=== PATIENT | female | born 1990 | race Caucasian/White ===

== ENCOUNTER 2025-01-13 19:13 | Emergency (ER) | payer OTHER, SELFPAY ==
[2025-01-13 20:33] LABS: CAUTI Indications for Culture Dysuria,urgency,freq; Glucose, Urine (Dipstick) Normal (Negative); Leukocyte Negative Leu/uL (Negative); Protein, Urine (Dipstick) 50 mg/dL (Neg-Trace); RBC/HPF 0-3 HPF (0-3); Specific Gravity, Urine 1.027 (1.002-1.036)
[2025-01-13 20:34] LABS: Bacteria/HPF 1+ HPF (None Seen)
[2025-01-13 20:36] LABS: Urine Culture Reflex No No
[2025-01-14 00:10] LABS: Chlam.trachomatis by PCR,Urine Not Detected (NotDetected); GC N.gonorrhoeae PCR,UrineVOID Not Detected (NotDetected)
== END 2025-01-13 22:17 | disposition home or self-care (01) ==
LOC: ERS 19:13
DX: O9A.211 Injury, poisoning and certain other consequences of external causes complicating pregnancy, first trimester (principal); S10.91XA Abrasion of unspecified part of neck, initial encounter; S80.811A Abrasion, right lower leg, initial encounter; O23.592 Infection of other part of genital tract in pregnancy, second trimester; O23.41 Unspecified infection of urinary tract in pregnancy, first trimester; N39.0 Urinary tract infection, site not specified; O99.331 Smoking (tobacco) complicating pregnancy, first trimester; Z3A.09 9 weeks gestation of pregnancy
CPT/HCPCS: 76801; 81001; 87480; 87491; 87510; 87591; 87660